=== PATIENT | female | born 1965 | race African-American/Black ===

== ENCOUNTER 2017-08-10 16:05 | Emergency (ER) | payer SELFPAY ==
[~2017-08-10 16:05] MED LIST: MELO15TA2 PO
[2017-08-10 16:06] VITALS: BP 177/96; PULSE 92; RESP 22; TEMP 98.9; O2SAT 95
[2017-08-10] MEDS ORDERED: GABA600T PO (16:23)
[2017-08-10] MEDS ORDERED: HYDR-3366 PO (16:23)
[2017-08-10 17:32] LABS: ALKALINE PHOSPHATASE 52 U/L (45-117); TOTAL BILIRUBIN ADULT 0.3 MG/DL (0.2-1.0)
[2017-08-10 17:35] LABS: ALT (GPT) 32 U/L (10-53); ANION GAP 5 MEQ/L (5-15); AST (GOT) 26 U/L (15-37); BICARBONATE 30.6 MEQ/L (21.0-32.0); BLOOD UREA NITROGEN 15 MG/DL (7-18); CHLORIDE 104 MEQ/L (98-107); GLOMERULAR FILTRATION RATE 80 ML/MIN (>89); SODIUM (NA) 140 MEQ/L (136-145)
[2017-08-10 17:37] LABS: ACETAMINOPHEN LESS THAN 2.0 MCG/ML (10.0-30.0); ALCOHOL LESS THAN 3 MG/DL (0-5)
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
[2017-08-10 19:22] LABS: AUTOMATED NEUTROPHIL # 4.8 TH/MM3 (1.8-7.7); BASOPHIL % 0.4 % (0.0-2.0); EOSINOPHIL # 0.1 TH/MM3 (0-0.4); EOSINOPHIL % 1.2 % (0.0-4.0); HEMATOCRIT 38.6 % (35.0-46.0); HEMO FLAGS DIFF FINAL; LYMPHOCYTE # 3.3 TH/MM3 (1.0-4.8); MEAN CELL VOLUME 95.8 FL (80.0-100.0); MEAN CORPUSCULAR HGB CONC 33.4 % (32.0-36.0); NEUT % 54.4 % (16.0-70.0); PLATELET COUNT 217 TH/MM3 (150-450); RED BLOOD COUNT 4.03 MIL/MM3 (4.00-5.30); RED CELL DISTRIBUTION WIDTH 13.4 % (11.6-17.2); WHITE BLOOD COUNT 8.9 TH/MM3 (4.0-11.0)
[2017-08-10 21:32] LABS: BACTERIA, URINE RARE /hpf; BLOOD, URINE NEG (NEG); CALCIUM OXALATE CRYSTALS,URINE MOD /hpf; COMMENT (UR) CULT NOT INDICATED; CULTURE IF INDICATED CULT NOT INDICATED; GLUCOSE,URINE NEG (NEG); KETONE, URINE NEG (NEG); MUCUS URINE FEW /lpf (OCC); NITRITE,URINE NEG (NEG); PH, URINE 5.5 (5.0-8.5); SQUAMOUS EPITHELIAL CELL URINE 6 /hpf (0-5); URINE COLOR YELLOW (YELLW/STRAW)
[2017-08-10 22:07] VITALS: BP 165/95; PULSE 86; RESP 20; TEMP 97.7; O2SAT 96
[2017-08-11] MEDS: GABAPENTIN 300 MG CAP PO STA ×2 (01:18→01:24)
[2017-08-11 01:30] VITALS: BP 123/68; PULSE 70; RESP 20; O2SAT 96
[2017-08-11] MEDS ORDERED: ACETAMINOPHEN/HYDROcodone 325 MG/5 MG TAB PO ONE (01:30)
--- NOTE | 2017-08-11 05:19 | PD ---
Physical Exam Time Seen by Provider: 05:10 Data Data Last Documented VS Vital Signs Date Time Temp Pulse Resp B/P (MAP) Pulse Ox O2 Delivery O2 Flow Rate FiO2 08/11/17 01:30 70 20 123/68 (86) 96 Room Air 08/10/17 22:07 97.7 Orders Orders Complete Blood Count With Diff (08/10/17 16:38) Comprehensive Metabolic Panel (08/10/17 16:38) Psych Screen (08/10/17 16:38) Drug Screen, Random Urine (08/10/17 16:38) Alcohol (Ethanol) (08/10/17 16:38) Salicylates (Aspirin) (08/10/17 16:38) Tylenol (Acetaminophen) (08/10/17 16:38) Urinalysis - C+S If Indicated (08/10/17 16:38) Diet Regular Basic (08/11/17 Breakfast) Acetamin-Hydrocod 325-5 Mg ([place] 5-325 (08/11/17 01:30) Gabapentin (Neurontin) (08/11/17 01:18) Ed Discharge Order (08/11/17 05:17) Labs Laboratory Tests Test 08/10/17 16:45 08/10/17 18:50 08/10/17 21:04 Blood Urea Nitrogen 15 MG/DL Creatinine 0.90 MG/DL Random Glucose 148 MG/DL Total Protein 7.7 GM/DL Albumin 3.7 GM/DL Calcium Level 9.3 MG/DL Alkaline Phosphatase 52 U/L Aspartate Amino Transf (AST/SGOT) 26 U/L Alanine Aminotransferase (ALT/SGPT) 32 U/L Total Bilirubin 0.3 MG/DL Sodium Level 140 MEQ/L Potassium Level 4.0 MEQ/L Chloride Level 104 MEQ/L Carbon Dioxide Level 30.6 MEQ/L Anion Gap 5 MEQ/L Estimat Glomerular Filtration Rate 80 ML/MIN Salicylates Level LESS THAN 1.7 MG/DL Acetaminophen Level LESS THAN 2.0 MCG/ML Ethyl Alcohol Level LESS THAN 3 MG/DL White Blood Count 8.9 TH/MM3 Red Blood Count 4.03 MIL/MM3 Hemoglobin 12.9 GM/DL Hematocrit 38.6 % Mean Corpuscular Volume 95.8 FL Mean Corpuscular Hemoglobin 32.0 PG Mean Corpuscular Hemoglobin Concent 33.4 % Red Cell Distribution Width 13.4 % Platelet Count 217 TH/MM3 Mean Platelet Volume 8.1 FL Neutrophils (%) (Auto) 54.4 % Lymphocytes (%) (Auto) 37.0 % Monocytes (%) (Auto) 7.0 % Eosinophils (%) (Auto) 1.2 % Basophils (%) (Auto) 0.4 % Neutrophils # (Auto) 4.8 TH/MM3 Lymphocytes # (Auto) 3.3 TH/MM3 Monocytes # (Auto) 0.6 TH/MM3 Eosinophils # (Auto) 0.1 TH/MM3 Basophils # (Auto) 0.0 TH/MM3 CBC Comment DIFF FINAL Differential Comment Urine Color YELLOW Urine Turbidity HAZY Urine pH 5.5 Urine Specific [place] 1.030 Urine Protein TRACE mg/dL Urine Glucose (UA) NEG mg/dL Urine Ketones NEG mg/dL Urine Occult Blood NEG Urine Nitrite NEG Urine Bilirubin NEG Urine Urobilinogen LESS THAN 2.0 MG/DL Urine Leukocyte Esterase LARGE Urine RBC 3 /hpf Urine WBC 3 /hpf Urine Squamous Epithelial Cells 6 /hpf Urine Calcium Oxalate Crystals MOD /hpf Urine Amorphous Sediment RARE Urine Bacteria RARE /hpf Urine Mucus FEW /lpf Microscopic Urinalysis Comment CULT NOT INDICATED Urine Opiates Screen POS Urine Barbiturates Screen NEG Urine Amphetamines Screen NEG Urine Benzodiazepines Screen NEG Urine Cocaine Screen NEG Urine Cannabinoids Screen NEG MDM Medical Record Reviewed: Yes Supervised Visit with [facility]: No Narrative Course Please see previous provider's notes. This patient came in voluntarily requesting psychiatric evaluation. She has been screened by psychiatry. The patient is requesting to leave. She reports that she has a ride home. She is vehemently denying any thoughts of suicidal or homicidal ideation. She feels safe at home and plans on following up with [facility]. She does not meet gray act criteria and she has no medical condition that would require additional hospitalization. She is stable for discharge. Diagnosis Primary Impression: Depression Referrals: [facility] Additional Instruction: Follow-up with a psychiatrist at [facility]. Return for any emergent medical conditions. Med/Other Pt SpecificInfo: No Change to Meds Disposition: 01 DISCHARGE HOME Condition: Stable Michael Arreola Aug 11, 2017 05:19
== END 2017-08-11 05:25 | disposition home or self-care (01) ==
LOC: NEPD 16:05
DX: F32.9 Major depressive disorder, single episode, unspecified (principal); R44.0 Auditory hallucinations; R44.1 Visual hallucinations
CPT/HCPCS: 80053; 80307; 81001; 85025; 99285